=== PATIENT | male | born 1965 | race Caucasian/White ===

== ENCOUNTER 2016-06-20 07:02 | Day surgery (SDC) | payer MEDICAID ==
[2016-06-20] MEDS ORDERED: Lactated Ringers 1,000 ML IV SCH (07:30)
[2016-06-20] MEDS ORDERED: fentaNYL 100 MCG/2 ML SDV ONE (08:02)
[2016-06-20] MEDS ORDERED: Propofol 200 MG/20 ML SDV ONE (08:02)
[2016-06-20] MEDS ORDERED: Midazolam 1 MG/ML 2 ML SDV ONE (08:02)
[2016-06-20 09:15] VITALS: BP 107/71
--- NOTE | 2016-06-21 10:28 | OR ---
DATE OF PROCEDURE: 06/20/2016 PREOPERATIVE DIAGNOSIS: Colon cancer screening. POSTOPERATIVE DIAGNOSIS: Unremarkable colonoscopy. PROCEDURE: Colonoscopy to the cecum. ANESTHESIA: IV anesthesia with monitored anesthesia care. INDICATION: This 51-year-old white male is referred for a colonoscopy for colon cancer screening. He has never had a colonoscopic exam. I counseled him for the procedure including risks and alternatives, and he gave his informed consent to proceed. DESCRIPTION OF PROCEDURE: The patient was placed in the left lateral decubitus position. IV anesthesia was administered by the Anesthesia Service. Time-out was held. A rectal exam was performed, which was unremarkable. The flexible video Olympus colonoscope was introduced through his anus, up his rectum, and out his colon all the way to the cecum. Once the cecum was reached, the scope was slowly withdrawn examining the mucosa throughout. No mucosal abnormalities were noted. The scope was retroflexed in the rectum with the distal rectum appearing unremarkable. The scope was straightened and removed. He tolerated the procedure well. Zia Damico MD /[id number] HEATHER
== END 2016-06-20 09:22 | disposition home or self-care (01) ==
LOC: JP.SDS 07:02
PROVIDERS: ATTEND Surgery
DX: Z12.11 Encounter for screening for malignant neoplasm of colon (principal); Z80.0 Family history of malignant neoplasm of digestive organs; J45.909 Unspecified asthma, uncomplicated; Z79.51 Long term (current) use of inhaled steroids
CPT/HCPCS: 45378; J2250; J2704; J3010; J7120

== ENCOUNTER 2016-10-30 12:14 | Emergency (ER) | payer MEDICAID ==
[2016-10-30] MEDS ORDERED: Ondansetron 4 MG/2 ML SDV IVPUSH ONE (13:43)
[2016-10-30] MEDS ORDERED: fentaNYL 100 MCG/2 ML SDV IVPUSH ONE (13:44)
[2016-10-30] MEDS ORDERED: Sodium Chloride 0.9% 1,000 ML IV SCH (13:45)
[2016-10-30] MEDS ORDERED: Ketorolac 30 MG/ML SDV IVPUSH ONE (14:29)
[2016-10-30 15:54] VITALS: BP 133/80
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
== END 2016-10-30 16:10 | disposition home or self-care (01) ==
LOC: JP.ED 12:14
DX: R10.12 Left upper quadrant pain (principal); J45.909 Unspecified asthma, uncomplicated; Z98.890 Other specified postprocedural states; Z79.82 Long term (current) use of aspirin; Z79.899 Other long term (current) drug therapy; Z88.8 Allergy status to other drugs, medicaments and biological substances; Z91.048 Other nonmedicinal substance allergy status
CPT/HCPCS: 36415; 80053; 81001; 84484; 85025; 93005; 96361; 96374; 96375; 99284; J1885; J2405; J3010; J7040

== ENCOUNTER 2017-07-19 16:49 | Emergency (ER) | payer MEDICAID ==
[2017-07-19] MEDS ORDERED: methylPREDNISolone Sodium Succinate 125 MG/2 ML SDV IVPUSH ONE (17:36)
[2017-07-19] MEDS ORDERED: Cetirizine 10 MG Tab PO ONE (17:37)
[2017-07-19] MEDS ORDERED: Ibuprofen 400 MG Tab PO ONE ×2 (17:38→18:34)
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
[2017-07-19 19:14] VITALS: BP 124/64
== END 2017-07-19 19:15 | disposition home or self-care (01) ==
LOC: JP.ED 16:49
DX: T78.40XA Allergy, unspecified, initial encounter (principal); K04.7 Periapical abscess without sinus; R07.9 Chest pain, unspecified; Z87.891 Personal history of nicotine dependence; Z88.6 Allergy status to analgesic agent; Z91.09 Other allergy status, other than to drugs and biological substances; Z88.2 Allergy status to sulfonamides
CPT/HCPCS: 36415; 80053; 84484; 85025; 93005; 96374; 99285; A9270; J2930